=== PATIENT | male | born 1950 | race African-American/Black ===

== ENCOUNTER 2021-03-09 03:31 | Emergency (ER) | payer OTHER ==
[~2021-03-09] VITALS: Ht 180.3 cm; Wt 92.0 kg
[2021-03-09 04:50] LABS: BASOPHILS % 0.2 % (0.0-2.0); EOSINOPHILS % 0.1 % (0.0-5.0); HEMATOCRIT. 41.3 % (42.0-52.0); HEMOGLOBIN. 13.2 g/dL (14.0-18.0); LYMPHOCYTES % 8.3 % (20.0-50.0); MEAN CORPUSCULAR HEMOGLOBIN 26.6 pg (28.0-32.0); MEAN CORPUSCULAR VOLUME 83.2 fL (80.0-94.0); MEAN PLATELET VOLUME 9.4 fl (7.4-10.4); MONOCYTES % 2.8 % (2.0-8.0); NEUTROPHILS % 88.6 % (40.0-76.0); PLATELET 204 x1000/uL (130-400); RED BLOOD CELL COUNT 4.97 mill/uL (4.7-6.1); RED CELL DISTRIBUTION WIDTH 13.4 % (11.6-14.6)
[2021-03-09 04:53] LABS: CHLORIDE 106 mEq/L (98-107)
[2021-03-09] MEDS ORDERED: NAPR500T7 MT (07:24)
[2021-03-09 07:38] VITALS: BP 142/77
== END 2021-03-09 07:38 | disposition home or self-care (01) ==
LOC: ER 04:18
DX: M54.6 Pain in thoracic spine (principal)
CPT/HCPCS: 36415; 71045; 80053; 84484; 85025; 93005; 99285